=== PATIENT | female | born 1955 | race Caucasian/White ===

== ENCOUNTER 2016-10-27 23:55 | Emergency (ER) | payer MEDICARE, MEDICAID ==
--- NOTE | 2016-10-28 00:04 | ED Physician Chart ---
Chief Complaint/HPI - Patient Information Date Seen:: 10/28/16 Time Seen:: 00:00 Chief Complaint:: hypoglycemia History of Present Illness:: 61-year-old female history of multiple psychiatric issues and insulin-dependent diabetes, brought in by EMS from nursing facility with acute, severe, improving , constant, hypoglycemia started about 30 minutes prior to arrival to the ER. Patient was having some associated lethargy. Apparently blood sugar was in the 20s. In the nursing facility they gave her glucagon and oral glucose. She had associated syncopal episode of vomiting after the oral glucagon. I also gave oral glucose. Blood sugar was apparently 125 when checked by fire department. History limited by patient's underlying psychiatric issues as patient is poor historian History provided by EMS and EMS run sheet Historian:: Patient, EMS Review:: Nurse's Note Reviewed, EMS run form Reviewed Review of Systems - Review of Systems Other: Complete system review otherwise unremarkable except as noted in history of present illness. Past Medical History - Past Medical History Past Medical History: HTN, DM, Dyslipidemia Family History: None Social History: Non Smoker, No Alcohol, No Drug Use, Care Facility Surgical History: None Psychiatricy History: Depression, Other (anxiety) Medication: Reviewed Family Medical History - Family Member Mother History Unknown: Yes Ethnicity: Non- Physical Exam - Physical Examination Other:: INITIAL VITAL SIGNS: Reviewed by me GENERAL: Alert and interactive. No acute distress HEAD: Head is normocephalic and atraumatic EYES: EOMI. PERRL. No scleral icterus. No conjunctival injection ENT: Moist mucous membranes. NECK: Supple. No masses. Full range of motion RESPIRATORY: No tachypnea. Clear breath sounds bilaterally. No wheezing, rales, or rhonchi CV: Regular rate and rhythm. No murmurs, rubs, or gallops ABDOMEN: Soft, non-distended, non-tender. No guarding. No rebound. No masses. EXTREMITIES: No deformity. No cyanosis. No edema. SKIN: Warm and dry. No obvious rashes. NEUROLOGIC: Alert and oriented. Face is symmetric. Speech is normal. Moves all extremities equally. Motor and sensory distally intact. Labs/Radiology/EKG Results - Lab Results Results: Lab Results 10/28/16 10/28/16 10/28/16 Range/Units 00:15 00:15 01:00 WBC 11.7 H (4.8-10.8) Th/cmm RBC 4.56 (3.80-5.10) Mil/cmm Hgb 14.5 (11.7-15.5) gm/dL Hct 44.0 (35.0-45.0) % MCV 96.6 (81-100) fl MCH 31.7 H (27.0-31.0) pg MCHC Differential 32.8 (28.0-36.0) pg RDW 13.1 (11.5-20.0) % Plt Count 214 (150-400) Th/cmm MPV 8.2 fl Neutrophils % 67.6 (40.0-80.0) % Lymphocytes % 22.7 (20.0-50.0) % Monocytes % 7.7 (2.0-10.0) % Eosinophils % 1.7 (0.0-5.0) % Basophils % 0.3 (0.0-2.0) % Sodium 128 L (136-145) mEq/L Potassium 4.0 (3.5-5.1) mEq/L Chloride 97 L (98-107) mEq/L Carbon Dioxide 28.4 (21.0-31.0) mEq/L Anion Gap 6.6 L (7.0-16.0) BUN 23 (7-25) mg/dL Creatinine 1.2 (0.6-1.2) mg/dL Est GFR ( Amer) 58.4 (>90) ml/min Est GFR (Non-Af Amer) 48.2 ml/min BUN/Creatinine Ratio 19.2 Glucose 43 L (70-105) mg/dL POC Glucose (70 - 105) MG/DL Calcium 9.6 (8.6-10.3) mg/dL Total Bilirubin 0.3 (0.3-1.0) mg/dL AST 44 H (13-39) U/L ALT 15 (7-52) U/L Alkaline Phosphatase 44 (34-104) U/L Total Protein 7.1 (6.0-8.3) gm/dL Albumin 4.2 (3.7-5.3) gm/dL Globulin 2.9 gm/dL Albumin/Globulin Ratio 1.5 (1.0-1.8) Urine Source CATH Urine Color STRAW Urine Clarity CLEAR (CLEAR) Urine pH 7.0 Ur Specific Coleman 1.015 (1.005-1.030) Urine Protein TRACE (NEGATIVE) mg/dL Urine Glucose (UA) 100 H (NEGATIVE) mg/dL Urine Ketones NEGATIVE (NEGATIVE) mg/dL Urine Blood SMALL H (NEGATIVE) Urine Nitrate NEGATIVE (NEGATIVE) Urine Bilirubin NEGATIVE (NEGATIVE) Urine Urobilinogen 0.2 (0.2 - 1.0) E.U./dL Ur Leukocyte Esterase NEGATIVE (NEGATIVE) Urine RBC 2-5 (0-5) /hpf Urine WBC NONE SEEN (0-5) /hpf Ur Epithelial Cells NONE SEEN (FEW) /lpf Urine Bacteria NONE SEEN (NONE SEEN) /hpf 10/28/16 Range/Units 01:56 WBC (4.8-10.8) Th/cmm RBC (3.80-5.10) Mil/cmm Hgb (11.7-15.5) gm/dL Hct (35.0-45.0) % MCV (81-100) fl MCH (27.0-31.0) pg MCHC Differential (28.0-36.0) pg RDW (11.5-20.0) % Plt Count (150-400) Th/cmm MPV fl Neutrophils % (40.0-80.0) % Lymphocytes % (20.0-50.0) % Monocytes % (2.0-10.0) % Eosinophils % (0.0-5.0) % Basophils % (0.0-2.0) % Sodium (136-145) mEq/L Potassium (3.5-5.1) mEq/L Chloride (98-107) mEq/L Carbon Dioxide (21.0-31.0) mEq/L Anion Gap (7.0-16.0) BUN (7-25) mg/dL Creatinine (0.6-1.2) mg/dL Est GFR ( Amer) (>90) ml/min Est GFR (Non-Af Amer) ml/min BUN/Creatinine Ratio Glucose (70-105) mg/dL POC Glucose 169 H (70 - 105) MG/DL Calcium (8.6-10.3) mg/dL Total Bilirubin (0.3-1.0) mg/dL AST (13-39) U/L ALT (7-52) U/L Alkaline Phosphatase (34-104) U/L Total Protein (6.0-8.3) gm/dL Albumin (3.7-5.3) gm/dL Globulin gm/dL Albumin/Globulin Ratio (1.0-1.8) Urine Source Urine Color Urine Clarity (CLEAR) Urine pH Ur Specific Coleman (1.005-1.030) Urine Protein (NEGATIVE) mg/dL Urine Glucose (UA) (NEGATIVE) mg/dL Urine Ketones (NEGATIVE) mg/dL Urine Blood (NEGATIVE) Urine Nitrate (NEGATIVE) Urine Bilirubin (NEGATIVE) Urine Urobilinogen (0.2 - 1.0) E.U./dL Ur Leukocyte Esterase (NEGATIVE) Urine RBC (0-5) /hpf Urine WBC (0-5) /hpf Ur Epithelial Cells (FEW) /lpf Urine Bacteria (NONE SEEN) /hpf ED Septic Shock - . Is Septic Shock (SBP<90, OR Lactate>4 mmol\L) present?: No Reassessment (Disposition) - Reassessment Reassessment:: Patient was severely hypoglycemic episode as facility. Patient is a poor historian due to some underlying psychiatric issues. She is an insulin- dependent diabetic type 2. They did give oral glucose and glucagon. I also gave her oral glucose. Blood sugar was improved with time she arrived here in the ER. We did serial glucose checks which remained stable after receiving D50. Blood work was essentially unremarkable. Patient was wishing to return back to her nursing facility. Recommended that she follow up with her primary physician. Return Precautions were given. Patient says she understands and agrees the plan. Reassessment Condition:: Improved - Diagnosis Diagnosis:: Acute hypoglycemia - Aftercare/Follow up Instructions Aftercare/Follow-Up Instructions:: Counseled pt regarding lab results/diagnosis & need follow up, Refer to Discharge Instructions - Patient Disposition Discharge/Transfer:: Home Time:: 02:24 Condition at Disposition:: Improved ED Discharge Plan - Patient Disposition Admit/Discharge/Transfer: PT DISCHARGED HOME Condition at Disposition: Improved
[2016-10-28 00:30] LABS: % BASOPHILS 0.3 % (0.0-2.0); % EOSINOPHILS 1.7 % (0.0-5.0); % LYMPHOCYTES 22.7 % (20.0-50.0); % MONOCYTES 7.7 % (2.0-10.0); % NEUTROPHILS 67.6 % (40.0-80.0); HEMOGLOBIN 14.5 gm/dL (11.7-15.5); MEAN CELL VOLUME 96.6 fl (81-100); MEAN CORPUSCULAR HEMOGLOBIN 31.7 pg (27.0-31.0); MEAN CORPUSCULAR HGB CONC 32.8 pg (28.0-36.0); MEAN PLATELET VOLUME 8.2 fl; NEUTROPHILE ABSOLUTE 7.9 Th/cmm (1.8-8.0); PLATELET COUNT 214 Th/cmm (150-400); RED BLOOD COUNT 4.56 Mil/cmm (3.80-5.10); RED CELL DISTRIBUTION WIDTH 13.1 % (11.5-20.0); WHITE BLOOD COUNT 11.7 Th/cmm (4.8-10.8)
[2016-10-28 00:47] LABS: ALB/GLOB RATIO 1.5 (1.0-1.8); ANION GAP 6.6 (7.0-16.0); BILIRUBIN,TOTAL 0.3 mg/dL (0.3-1.0); BUN/CREATININE RATIO 19.2; CALCIUM SERUM 9.6 mg/dL (8.6-10.3); CARBON DIOXIDE 28.4 mEq/L (21.0-31.0); CREATININE - SERUM 1.2 mg/dL (0.6-1.2)
[2016-10-28] MEDS ORDERED: Dextrose 50% 50 mL Abboject IVP ONE (00:49)
[2016-10-28] MEDS ORDERED: Dextrose 50% 50 mL Abboject IVP STA (00:49)
[2016-10-28 01:26] LABS: URINE COLOR STRAW; URINE GLUCOSE (UA) 100 mg/dL (NEGATIVE)
[2016-10-28 01:27] LABS: URINE BILIRUBIN NEGATIVE (NEGATIVE); URINE BLOOD SMALL (NEGATIVE); URINE KETONE NEGATIVE (NEGATIVE); URINE PROTEIN TRACE mg/dL (NEGATIVE); URINE UROBILINOGEN 0.2 E.U./dL (0.2 - 1.0)
[2016-10-28 01:28] LABS: URINE BACTERIA NONE SEEN /hpf (NONE SEEN); URINE EPITHELIAL CELLS NONE SEEN /lpf (FEW); URINE WBC NONE SEEN /hpf (0-5)
== END 2016-10-28 02:24 ==
LOC: ER 23:55
DX: E11.649 Type 2 diabetes mellitus with hypoglycemia without coma (principal); I10 Essential (primary) hypertension; E78.5 Hyperlipidemia, unspecified
CPT/HCPCS: 99284; 96374; 36415; 36416 ×3; 82948 ×3; 85025; 81001; 80053; Q0162; 90799; Z7502; Z7610